=== PATIENT | male | born 1970 | race Caucasian/White ===

== ENCOUNTER 2019-04-19 08:15 | Emergency (ER) | payer OTHER ==
[2019-04-19] MEDS ORDERED: HYDROmorphone 1 MG/ML Syringe IVPUSH ONE ×2 (08:20→09:37)
[2019-04-19] MEDS ORDERED: diazePAM 5 MG/ML MDV IVPUSH ONE (08:20)
[2019-04-19] MEDS ORDERED: Sodium Chloride 0.9% 1,000 ML IV ONE (08:20)
[2019-04-19] MEDS ORDERED: Sodium Chloride 0.9% 10 ML Syringe FLUSH PRN (08:20)
--- NOTE | 2019-04-19 08:21 | EDM.PDOC ---
ED HPI GENERAL MEDICAL PROBLEM - General Chief Complaint: Back Pain or Injury Stated Complaint: Low back pain Time Seen by Provider: 04/19/19 08:19 Source of Information: Reports: Patient, RN, RN Notes Reviewed History Limitations: Reports: No Limitations - History of Present Illness INITIAL COMMENTS - FREE TEXT/NARRATIVE: Patient presents to the ED at [facility] for the evaluation of acute onset of low back pain. The patient states his pain started a few days ago and has progressively gotten worse. He states while brushing his teeth this AM, the pain became unbearable. He denies any radiation of the pain. No sciatic symptoms. Patient denies any bowel or bladder dysfunction. Denies any numbness, tingling, or paresthesias. He denies any injury or trauma that he is aware of. No previous back surgeries. Patient states this is not a work related injury. 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 (see below) (None) - Related Data Home Meds: Home Meds Cyclobenzaprine HCl 10 mg PO Q8H PRN #15 tablet 04/19/19 [Rx] Hydrocodone/Acetaminophen [Hydrocodon-Acetaminophen 5-325] 1 each PO Q6H PRN # 15 tablet 04/19/19 [Rx] ED ROS GENERAL - Review of Systems Review Of Systems: See Below Constitutional: Denies: Fever, Chills Respiratory: Denies: Shortness of Breath, Cough Cardiovascular: Denies: Chest Pain, Palpitations GI/Abdominal: Denies: Abdominal Pain, Nausea, Vomiting Musculoskeletal: Reports: Back Pain (Lower) Skin: Reports: No Symptoms Neurological: Reports: No Symptoms ED EXAM,LOWER BACK PAIN/INJURY - Physical Exam Exam: See Below Exam Limited By: No Limitations General Appearance: Alert, No Apparent Distress Respiratory/Chest: No Respiratory Distress, Lungs Clear, Normal Breath Sounds Cardiovascular: Normal Peripheral Pulses, Regular Rate, Rhythm Back Exam: Decreased Range of Motion, Muscle Spasm, Paraspinal Tenderness. No: Vertebral Tenderness Neurological: Alert, No Motor/Sensory Deficits, Oriented x 3 Skin Exam: Warm, Dry, Intact, Normal Color Course - Orders/Labs/Meds Orders: Active Orders 24 hr Category Date Time Status Sodium Chloride 0.9% [Saline Flush] Med 04/19/19 08:20 Active 10 ml FLUSH ASDIRECTED PRN Peripheral IV Insertion Adult [OM.PC] Routine Oth 04/19/19 08:20 Ordered Medication Orders Sodium Chloride (Saline Flush) 10 ml FLUSH ASDIRECTED PRN PRN Reason: Keep Vein Open Meds: Medications Generic Name Dose Route Start Last Admin Trade Name Freq PRN Reason Stop Dose Admin Sodium Chloride 10 ml 04/19/19 08:20 Saline Flush FLUSH ASDIRECTED PRN Keep Vein Open Discontinued Medications Generic Name Dose Route Start Last Admin Trade Name Freq PRN Reason Stop Dose Admin Diazepam 5 mg 04/19/19 08:20 04/19/19 08:35 Valium IVPUSH 04/19/19 08:21 5 mg STAT ONE Administration Hydromorphone HCl 1 mg 04/19/19 08:20 04/19/19 08:37 Dilaudid IVPUSH 04/19/19 08:21 1 mg ONETIME ONE Administration Hydromorphone HCl 2 mg 04/19/19 09:37 04/19/19 09:40 Dilaudid IVPUSH 04/19/19 09:38 2 mg ONETIME ONE Administration Sodium Chloride 1,000 mls @ 999 mls/hr 04/19/19 08:20 04/19/19 08:35 Normal Saline IV 04/19/19 09:20 999 mls/hr ONETIME ONE Administration Ondansetron HCl 4 mg 04/19/19 08:27 04/19/19 08:42 Zofran IVPUSH 04/19/19 08:28 4 mg ONETIME ONE Administration - Radiology Interpretation Free Text/Narrative:: Thoracolumbar, 3V: NO definite acute compression deformity identified. May consider an MRI See scanned report in EMR for details Departure - Departure Time of Disposition: 10:04 Disposition: Home, Self-Care 01 Condition: Good Clinical Impression: Muscle spasm of back Acute back pain Qualifiers: Back pain location: low back pain Back pain laterality: bilateral Sciatica presence: without sciatica Qualified Code(s): M54.5 - Low back pain - Discharge Information *PRESCRIPTION DRUG MONITORING PROGRAM REVIEWED*: Not Applicable *COPY OF PRESCRIPTION DRUG MONITORING REPORT IN PATIENT ABDIRASHID: Not Applicable Prescriptions: Cyclobenzaprine HCl 10 mg PO Q8H PRN #15 tablet PRN Reason: Muscle Spasm Hydrocodone/Acetaminophen [Hydrocodon-Acetaminophen 5-325] 1 each PO Q6H PRN # 15 tablet PRN Reason: Pain Instructions: Muscle Cramps and Spasms, Chronic Back Pain, [id number], Pain Medicine Instructions, [id number] Referrals: DAT MENDOSA [Other] Forms: ED Department Discharge, ED Return to Work/School Form Additional Instructions: 1. Stay well hydrated and rest 2. Take medications as directed, be careful when taking as the meds could cause drowsiness 3. No work the rest of today 4. See your PCP as symptoms warrant - Problem List Review Problem List Initiated/Reviewed/Updated: Yes - My Orders Last 24 Hours: My Active Orders 04/19/19 08:20 Sodium Chloride 0.9% [Saline Flush] 10 ml FLUSH ASDIRECTED PRN Peripheral IV Insertion Adult [OM.PC] Routine - Assessment/Plan Last 24 Hours: My Active Orders 04/19/19 08:20 Sodium Chloride 0.9% [Saline Flush] 10 ml FLUSH ASDIRECTED PRN Peripheral IV Insertion Adult [OM.PC] Routine Assessment:: Acute back pain Muscle spasm of the back Plan: Xray discussed with patient. No acute problems identified. Will start on Flexeril and [place] short term. Needs to f/u with PCP as symptoms warrant.
[2019-04-19] MEDS ORDERED: Ondansetron 4 MG/2 ML SDV IVPUSH ONE (08:27)
--- NOTE | 2019-04-19 09:54 | CR ---
[id number] RAD/RAD Thoracolumbar Junction 2V EXAM: Thoracolumbar junction 3 views. INDICATION: Back pain COMPARISON: No previous similar exam is available for comparison. FINDINGS: No fracture or subluxation is seen. No definite compression deformity though positioning limits evaluation of the midthoracic spine. The pedicles are intact. Multilevel degenerative changes of the thoracolumbar spine most pronounced at L4-L5. IMPRESSION: NO DEFINITE ACUTE COMPRESSION DEFORMITY IDENTIFIED. IF CONTINUED CONCERN, MRI COULD BE CONSIDERED FOR FURTHER EVALUATION. Mann Daley DO 04/19/19 0953 Thank you for allowing us to participate in the care of your patient.
== END 2019-04-19 10:25 | disposition home or self-care (01) ==
LOC: VM.ED 08:15
DX: M54.5 Low back pain (principal); M62.830 Muscle spasm of back
CPT/HCPCS: 72080; 96361; 96374; 96375; 96376; 99283; J1170; J2405; J3360; J7030